=== PATIENT | female | born 1980 | race Caucasian/White ===

== ENCOUNTER 2016-10-11 11:06 | Day surgery (SDC) | payer OTHER ==
[~2016-10-11 11:06] MED LIST: Lidocain 1% EPI 1:100,000 * 30 ML MDV ONE; Lidocaine 2.5%/Prilocain 2.5%* 5 GM TUBE ONE
[2016-10-11 14:29] VITALS: BP 118/66
--- NOTE | 2016-10-16 00:34 | OP ---
DATE OF OPERATION: 10/11/16 [facility] DATE OF : 84 SURGEON: Mir Orosco MD GIFT WRAPPER: ROMEO Urban ANESTHESIOLOGIST: None. ANESTHESIA: Local only with 1% lidocaine with epinephrine and bicarbonate. PRE-OP DIAGNOSIS: Left carpal tunnel syndrome. POST-OP DIAGNOSIS: Left carpal tunnel syndrome. OPERATIVE PROCEDURE: Left open carpal tunnel release. INDICATIONS: Jen is a 36-year-old female. I have seen her multiple times. She has tried extensive nonoperative treatment, and ultimately elected to proceed with a left carpal tunnel release after discussion of risks and benefits. ESTIMATED BLOOD LOSS: 5 mL. COMPLICATIONS: None. FINDINGS: As expected. DESCRIPTION OF PROCEDURE: Jen was seen in the preoperative holding area and the correct side, site of the procedure were marked. A time-out was performed and then the operative area was infiltrated with 1% lidocaine with epinephrine and bicarbonate. Short time later, she was brought back to the operating room, where the arm was prepped and draped in usual fashion and formal time-out was performed. Standard 2 or 3 cm longitudinal incision was made in the area for an open carpal tunnel release. Dissection was carried down through the subcutaneous tissue and palmar fascia. The transverse carpal ligament was exposed. Prior to opening the transverse carpal ligament, I created a subcutaneous tunnel just superficial to the distal antebrachial fascia and then released the transverse carpal ligament to stop the radial aspect of the hook of the hamate. The release was carried out from distal to proximal. When I got to the proximal aspect of the incision, I placed a Dalton retractor and retracted the skin and subcutaneous tissue superficially. Under direct visualization, the tenotomy scissors were used to release the transverse carpal ligament and distal antebrachial fascia to a level of about 4 to 5 cm proximal to the volar wrist flexion crease. I then checked the release, and there was no pressure on the nerves. So, I went ahead and irrigated the wound and the skin was closed with some 4-0 nylon suture. The wound was dressed with Xeroform, 4x4s, and an Andrés wrap. She was taken to the recovery room in stable condition. [id number]/[facility] #: [id number] [facility]AD[facility] CAMPUSFalguni
== END 2016-10-11 14:21 | disposition home or self-care (01) ==
LOC: OREAST 11:06
PROVIDERS: ATTEND Orthopaedic Surgery Hand Surgery
DX: G56.02 Carpal tunnel syndrome, left upper limb (principal)
CPT/HCPCS: A9270-GY

== ENCOUNTER 2017-09-04 20:46 | Emergency (ER) | payer OTHER ==
[2017-09-04 20:59] VITALS: BP 112/71
--- NOTE | 2017-09-04 21:40 | UC ---
Hand/Wrist HPI - HPI Summary HPI Summary: 37 yo female presents here after sustaining a jamming injury to right middle finger DIP She is right handed - History Of Current Complaint Chief Complaint: UCUpperExtremity Stated Complaint: FINGER INJURY Time Seen by Provider: 09/04/17 21:03 Hx Obtained From: Patient Hx Last Menstrual Period: 08/24/17 Onset/Duration: Sudden Onset Severity Initially: Moderate Severity Currently: Mild Pain Intensity: 3 Pain Scale Used: 0-10 Numeric Character Of Pain: Aching Aggravating Factor(s): Other - touch Alleviating Factor(s): Rest - Allergies/Home Medications Allergies/Adverse Reactions: Allergies Allergy/AdvReac Type Severity Reaction Status Date / Time No Known Allergies Allergy Verified 09/04/17 21:00 Home Medications: Home Medications Ranitidine HCl (Nf) [Zantac] 75 mg PO DAILY 09/04/17 [History Confirmed 09/04/17 ] PMH/Surg Hx/FS Hx/Imm Hx Previously Healthy: Yes - Surgical History Surgical History: Yes Surgery Procedure, Year, and Place: T&A, RESET JAW,LEFT CARPAL TUNNEL REPAIR - Family History Known Family History: Positive: Hypertension - Social History Alcohol Use: Weekly Substance Use Type: None Smoking Status (MU): Never Smoked Tobacco Review of Systems Constitutional: Negative Skin: Negative Eyes: Negative ENT: Negative Respiratory: Negative Cardiovascular: Negative Gastrointestinal: Negative Genitourinary: Negative Motor: Negative Neurovascular: Negative Musculoskeletal: Arthralgia Neurological: Negative Psychological: Negative Is Patient Immunocompromised?: No All Other Systems Reviewed And Are Negative: Yes Physical Exam Triage Information Reviewed: Yes Appearance: Well-Appearing, No Pain Distress, Well-Nourished Vital Signs: Initial Vital Signs Temp 98.3 F 09/04/17 20:55 Pulse 88 09/04/17 20:55 Resp 16 09/04/17 20:55 BP 112/71 09/04/17 20:55 Pulse Ox 99 09/04/17 20:55 Vital Signs Reviewed: Yes Eyes: Positive: Conjunctiva Clear ENT: Positive: Pharynx normal. Negative: Nasal congestion, Nasal drainage, Trismus, Muffled voice, Hoarse voice Neck: Positive: Supple, Nontender Respiratory: Positive: Lungs clear, Normal breath sounds, No respiratory distress Musculoskeletal: Positive: Other: - mallet finger deformity RMF Neurological: Positive: Alert Psychological Exam: Normal Procedures - Splinting Pre-Made Type: STAX splint Pre-Proc Neuro Vasc Exam: normal Post-Proc Neuro Vasc Exam: normal Hand/Wrist Course/Dx - Differential Dx/Diagnosis Provider Diagnoses: mallet finger deformity right middle finger Discharge - Discharge Plan Condition: Stable Disposition: HOME Patient Education Materials: Wilma José (ED) Referrals: Lavonne Fajardo MD [Medical Doctor] - As Soon As Possible Additional Instructions: you have a mallet finger deformity from a tendon rupture I saw no associated fracture splint splint changing precautions as discussed
--- NOTE | 2017-09-04 21:48 | RAD ---
INDICATION: Right middle finger injury. TECHNIQUE: 3 views of the right middle finger were obtained. FINDINGS: There is mild soft tissue swelling. The finger is extended at the proximal interphalangeal joint and flexed at the distal interphalangeal joint. The bones are otherwise in normal alignment. No fracture is seen. Joint spaces appear maintained. IMPRESSION: MALLET FINGER, NO EVIDENCE FOR FRACTURE.
== END 2017-09-04 21:55 | disposition home or self-care (01) ==
LOC: UCEAST 20:46
DX: M20.011 Mallet finger of right finger(s) (principal)
CPT/HCPCS: 73140; 99211; G0463

== ENCOUNTER 2021-05-23 17:58 | Inpatient (IN) ==
[~2021-05-23 17:58] MED LIST changes: +Dinoprostone 10 MG VAG.SUPP VAGINAL ONE; -Lidocain 1% EPI 1:100,000 * 30 ML MDV ONE; -Lidocaine 2.5%/Prilocain 2.5%* 5 GM TUBE ONE
[2021-05-23 19:47] LABS: Urine Benzodiazepine Screen None Detected (None Detect); Urine Cannabinoids Screen None Detected (None Detect); Urine Opiates Screen None Detected (None Detect)
[2021-05-23 20:10] LABS: Urine Appearance Clear; Urine Bilirubin Negative (Negative); Urine Blood Negative (Negative); Urine Color Yellow; Urine Glucose 1+(50 mg/dL) (Negative); Urine Ketones Negative (Negative); Urine Nitrite Negative (Negative); Urine Protein Negative (Negative); Urine Specific Gravity 1.019 (1.002-1.030); Urine Urobilinogen Negative (Negative)
[2021-05-23 20:11] LABS: Urine Bacteria 1+ (Absent); Urine Red Blood Cell 1+(3-5/hpf) (Absent); Urine Squamous Epithelial Cell Present (Absent); Urine White Blood Cell Trace(0-5/hpf) (Absent)
[2021-05-23 20:18] LABS: Rapid COVID-19 Molecular Undetected (Undetected)
[2021-05-24] MEDS ORDERED: Oxytocin in LR 20 UNITS/1,000 ML BAG IVPB SCH (15:00)
[2021-05-24 16:02] LABS: ABS Eosinophils 0.1 10^3/ul (0-0.6); ABS Lymphocytes 1.3 10^3/ul (1.0-4.8); ABS Monocytes 0.5 10^3/ul (0-0.8); ABS Neutrophils 7.4 10^3/ul (1.5-7.7); Eosinophil % 0.6 %; Hematocrit 31 % (35-47); Hemoglobin 10.5 g/dL (12.0-16.0); Lymphocyte % 14.3 %; Mean Corpuscular HGB Conc 34 g/dL (31-36); Mean Corpuscular Hemoglobin 27 pg (27-31); Mean Corpuscular Volume 80 fL (80-97); Mean Platelet Volume 10.8 fL (7.4-10.4); Platelet Count 200 10^3/uL (150-450); Red Blood Count 3.91 10^6 /uL (3.70-4.87); Red Cell Distribution Width 15 % (10-15); White Blood Count 9.4 10^3/uL (3.5-10.8)
[2021-05-24] MEDS ORDERED: OBEPIDURAL 250 ML EPIDURAL ONE (17:26)
[2021-05-25] MEDS ORDERED: Glycerin ADULT 2.4 gm SUPP PR PRN (01:44)
[2021-05-25] MEDS ORDERED: Lactated Ringers 1000 ml BAG 1,000 ML IV SCH (02:00)
[2021-05-25] MEDS ORDERED: Oxytocin in LR 20 UNITS/1,000 ML BAG IVPB SCH (02:00)
[2021-05-25] MEDS ORDERED: Lidocaine 1% VIAL 10 MG/ML VIAL ONE (02:37)
[2021-05-25] MEDS: Witch Hazel PAD JAR TOPICAL PRN (02:41)
[2021-05-25] MEDS: Dibucaine 1% OINT 28.35 GM TUBE PR PRN (02:41)
[2021-05-25 09:44] LABS: ABS Lymphocytes 1.3 10^3/ul (1.0-4.8); ABS Monocytes 0.8 10^3/ul (0-0.8); ABS Neutrophils 12.1 10^3/ul (1.5-7.7); Hematocrit 32 % (35-47); Hemoglobin 10.5 g/dL (12.0-16.0); Lymphocyte % 9.2 %; Mean Corpuscular HGB Conc 33 g/dL (31-36); Mean Corpuscular Hemoglobin 27 pg (27-31); Mean Corpuscular Volume 82 fL (80-97); Mean Platelet Volume 10.3 fL (7.4-10.4); Platelet Count 193 10^3/uL (150-450); Red Blood Count 3.86 10^6 /uL (3.70-4.87); Red Cell Distribution Width 15 % (10-15); White Blood Count 14.2 10^3/uL (3.5-10.8)
[2021-05-26] MEDS: Dibucaine 1% OINT 28.35 GM TUBE PR PRN (08:49)
[2021-05-26] MEDS: Witch Hazel PAD JAR TOPICAL PRN (08:49)
[2021-05-26 09:12] VITALS: BP 111/61
== END 2021-05-26 11:40 | disposition home or self-care (01) | DRG 768 ==
LOC: MCHOBOUT 17:58 → MCHOB 18:04
PROVIDERS: ADMIT Midwife; ATTEND Midwife